=== PATIENT | female | born 1980 | race Caucasian/White ===

== ENCOUNTER 2017-02-16 11:11 | Emergency (ER) | payer BC ==
[~2017-02-16] VITALS: Ht 165.1 cm; Wt 69.4 kg
[~2017-02-16 11:11] MED LIST: DEPO-PROVER150 MG/ML IM; Lopressor PO; Motrin PO; NATALCARE RX1 TABLET PO; Percocet 5/325,Endoc PO; TRINESSA1 EACH PO
[2017-02-16 11:33] VITALS: BP 115/74
== END 2017-02-16 13:08 | disposition home or self-care (01) ==
LOC: EME 11:11
PROC: 2W3RX1Z Immobilization of Left Lower Leg using Splint (ICD-10-PCS; principal; 2017-02-16)
DX: S93.402A Sprain of unspecified ligament of left ankle, initial encounter (principal); W10.9XXA Fall (on) (from) unspecified stairs and steps, initial encounter
CPT/HCPCS: 73610; 99281; 99283

== ENCOUNTER 2017-04-23 10:58 | Emergency (ER) | payer BC ==
[~2017-04-23] VITALS: Ht 165.1 cm; Wt 68.8 kg
[2017-04-23 11:35] LABS: HEMATOCRIT 40.5 % (36.0-46.0); MCH 28.6 PG (29.0-34.0); MCHC 32.8 G/DL (30.0-36.0); MCV 87.1 FL (83-99); MEAN PLAT.VOLUME 9.9 uM^3 (9.5-12.4); PLATELET COUNT 275 K/uL (156-360); RBC DIS.WIDTH-CV 13.1 % (11.8-14.6); RBC DIS.WIDTH-SD 41.2 % (39-53); RED BLOOD COUNT 4.65 M/uL (3.80-5.20); WHITE BLOOD COUNT 5.3 K/uL (4.1-10.2)
[2017-04-23 11:48] LABS: CHLORIDE 104 mEq/L (99-109); POTASSIUM 3.7 mEq/L (3.7-5.4); SODIUM 136 mEq/L (136-147)
[2017-04-23 11:50] LABS: GLUCOSE 114 mg/dL (70-99)
[2017-04-23 11:51] LABS: ANION GAP 9 MEQ/L (2-14)
[2017-04-23 11:52] LABS: TOTAL BILIRUBIN 0.6 mg/dL (0.0-1.0)
[2017-04-23 11:53] LABS: ALKALINE PHOSPHATASE 42 IU/L (3-129)
[2017-04-23 11:54] LABS: GFR ESTIMATE (CALCULATED) > 59 mL/min/
[2017-04-23 11:55] LABS: UREA NITROGEN (BUN) 10 mg/dL (9-23)
[2017-04-23 11:57] LABS: LIPASE 20 U/L (1.0-51.0)
[2017-04-23 12:04] LABS: QUANTITATIVE HCG < 4.0 MIU/ML
[2017-04-23 13:24] LABS: ADD MIUA? YES; BILIRUBIN NEGATIVE; BLOOD NEGATIVE; COLOR STRAW ((YELLOW)); GLUCOSE (STRIP) NEGATIVE; KETONES NEGATIVE; LEUKOCYTES NEGATIVE; NITRITE POSITIVE; PROTEIN (STRIP) NEGATIVE; SPECIFIC GRAVITY 1.006 (1.000-1.030); UROBILINOGEN 0.2 MG/DL (0.2-1.0)
[2017-04-23 13:26] LABS: BACTERIA RARE /HPF; EPITHELIAL CELLS RARE /HPF; MUCUS TRACE /LPF; RED BLOOD CELLS 0-5 /HPF (0-5); UCUL ADDED? NO; WHITE BLOOD CELLS 0-5 /HPF (0-5)
[2017-04-23] MEDS ORDERED: ZOFRAN ODT4 MG PO (14:56)
[2017-04-23 15:26] VITALS: BP 125/85
== END 2017-04-23 15:27 | disposition home or self-care (01) ==
LOC: EME 10:58
DX: R11.2 Nausea with vomiting, unspecified (principal); R10.9 Unspecified abdominal pain
CPT/HCPCS: 80053; 81003; 83690; 84702; 85027; 99281; 99284; J2405; J7030